=== PATIENT | female | born 1985 | race Caucasian/White ===

== ENCOUNTER → 2020-11-18 | Outpatient (CLI) | payer OTHER ==
--- NOTE | 2020-11-18 13:23 | DIREP ---
PROCEDURE:US OB 2 3TRI DETAILED TRANSABD COMPARISON:None. INDICATIONS:O09.91 HIGH RISK TECHNIQUE:Transabdominal sonography of the gravid uterus was performed. FINDINGS: NUMBER: Single. POSITION: Cephalic. AMNIOTIC FLUID VOLUME: Largest vertical pocket: 3.3 cm, (normal is 2-8 cm). PLACENTAL LOCATION: Posterior. Low-lying versus incomplete previa. CERVICAL LENGTH: Unremarkable transabdominal assessment. HEART RATE: 143 bpm BIPARIETAL DIAMETER: 4.9 cm, (20 weeks, 5 days),81.4 percentile. HEAD CIRCUMFERENCE: 18.1 cm,(20 weeks, 4 days),72.6 percentile. ABD CIRCUMFERENCE: 15.3 cm,(20 weeks, 3 days),66.0 percentile. FEMUR LENGTH:3.3 cm, (20 weeks, 3 days), 62.0 percentile. EFW: 355.3 g,(76.0 percentile). ANATOMY: CEREBELLUM: 2.1 cm NUCHAL FOLD: 4.4 mm CISTERNA MAGNA: 4.1 mm LATERAL VENTRICLES: 6.5 mm CHOROID PLEXUS: Abnormal. Choroid plexus cyst, image 34/58. MIDLINE FALX: Normal. CAVUM SEPTUM PELLUCIDUM: Suboptimal. 4 CHAMBER VIEW OF HEART:Normal. UPPER LIP: Normal. STOMACH: Normal. KIDNEYS: Normal. BLADDER: Normal. CORD INSERTION: Normal. CORD VESSEL NUMBER: Normal. SPINE: Normal. EXTREMITIES: Present. OTHER: Anatomy seen suboptimally above is related to patient habitus and/or the position of the fetus. ULTRASOUND AGE: 20 weeks, 4 days ULTRASOUND MORGAN: April 03, 2021 CLINICAL AGE: 19 weeks, 6 days CLINICAL MORGAN: April 08, 2021 CONCLUSION: 1. Single live intrauterine . 2. No abnormality demonstrated. A choroid plexus cyst is incidentally noted, incorporate into genetic counseling. AMA, also an indication for targeted ultrasound. 3. Posterior placenta is low lying and incomplete previa may be present. Recommend follow-up ultrasound in the 3rd trimester to ensure resolution. Transvaginal/translabial imaging may be needed at that time to fully visualize. Dictated by: BERENICE Physician on 11/18/2020 at 12:25 PM
== END | disposition home or self-care (01) ==
LOC: RAD 10:31
PROVIDERS: ATTEND Obstetrics & Gynecology
DX: O09.91 Supervision of high risk pregnancy, unspecified, first trimester (principal); Z3A.20 20 weeks gestation of pregnancy
CPT/HCPCS: 76805